=== PATIENT | male | born 1940 | race Caucasian/White ===

== ENCOUNTER 2016-08-16 15:23 | Emergency (ER) | payer OTHER ==
[~2016-08-16] VITALS: Ht 165.1 cm; Wt 81.6 kg
[~2016-08-16 15:23] MED LIST: ASPIRIN ADULT L81 M1 PO; AZOR 5 MG-40 MG1 TAB PO; CALCIUM 500500 M2 PO; CLOPIDOGREL BIS75 MG PO; FUROSEMIDE PO; GLIPIZIDE10 M PO; LEVETIRACETAM250 MG PO; OMEPRAZOLE DR20 MG PO; ONGLYZA5 MG PO; POTASSIUM20 MEQ PO; SIMVASTATIN20 MG PO
[2016-08-16 17:07] VITALS: BP 130/73
== END 2016-08-16 17:07 | disposition home or self-care (01) ==
LOC: ED 15:23
DX: B02.9 Zoster without complications (principal); I10 Essential (primary) hypertension

== ENCOUNTER 2018-02-03 05:58 | Emergency (ER) | payer OTHER ==
[~2018-02-03] VITALS: Ht 157.5 cm; Wt 81.6 kg
[2018-02-03 06:12] VITALS: Ht 157.5 cm; Wt 81.6 kg
[2018-02-03 07:34] LABS: BASOPHIL % 0.6 % (0-2); PLATELET COUNT 162 x10^3mcL (130-400); RED CELL DISTRIBUTION WIDTH 13.1 % (11.5-14.5)
[2018-02-03 07:59] LABS: UA SPECIFIC GRAVITY 1.025 (1.005-1.035); microscopic required? YES; urine erythrocyte 3+ (NEGATIVE)
[2018-02-03 08:18] LABS: CALCIUM 8.9 mg/dL (8.5-10.1); CARBON DIOXIDE 27.4 mmol/L (21-32); CHLORIDE SERUM 103 mmol/L (98-107); CREATININE SERUM 0.8 mg/dL (0.7-1.3); GLUCOSE SERUM 256 mg/dL (74-106); POTASSIUM SERUM 4.4 mmol/L (3.5-5.1); SODIUM SERUM 137 mmol/L (136-145)
[2018-02-03 08:25] LABS: ALBUMIN 3.2 g/dL (3.4-5.0); ALKALINE PHOSPHATASE 107 U/L (46-116); ALT/SGPT 16 U/L (16-63); AST/SGOT 8 U/L (15-37); BILIRUBIN TOTAL 0.5 mg/dL (0.20-1.00); TOTAL PROTEIN, SERUM 7.4 g/dL (6.4-8.2)
[2018-02-03 09:03] VITALS: BP 149/94
== END 2018-02-03 09:03 | disposition home or self-care (01) ==
LOC: ED 05:58
PROVIDERS: Emergency Medicine
DX: N39.0 Urinary tract infection, site not specified (principal); I10 Essential (primary) hypertension; R56.9 Unspecified convulsions; E78.00 Pure hypercholesterolemia, unspecified; Z86.73 Personal history of transient ischemic attack (TIA), and cerebral infarction without residual deficits; Z85.46 Personal history of malignant neoplasm of prostate
CPT/HCPCS: 36415

== ENCOUNTER 2018-08-26 07:49 | Emergency (ER) | payer OTHER ==
[~2018-08-26] VITALS: Ht 160 cm; Wt 81.6 kg
[2018-08-26 07:53] VITALS: Ht 160 cm; Wt 81.6 kg
[2018-08-26 08:40] LABS: BASOPHIL % 0.3 % (0-2); PLATELET COUNT 190 x10^3mcL (130-400); RED CELL DISTRIBUTION WIDTH 14.2 % (11.5-14.5)
[2018-08-26 08:51] LABS: CALCIUM 8.8 mg/dL (8.5-10.1); CARBON DIOXIDE 28.2 mmol/L (21-32); CHLORIDE SERUM 101 mmol/L (98-107); CREATININE SERUM 0.9 mg/dL (0.7-1.3); GLUCOSE SERUM 215 mg/dL (74-106); POTASSIUM SERUM 4.2 mmol/L (3.5-5.1); SODIUM SERUM 136 mmol/L (136-145)
[2018-08-26 08:55] LABS: ALKALINE PHOSPHATASE 69 U/L (46-116); ALT/SGPT 14 U/L (16-63); AST/SGOT 11 U/L (15-37); BILIRUBIN TOTAL 0.3 mg/dL (0.20-1.00); LIPASE 166 IU/L (73-393); TOTAL PROTEIN, SERUM 7.7 g/dL (6.4-8.2)
[2018-08-26 08:56] LABS: ALBUMIN 3.3 g/dL (3.4-5.0)
[2018-08-26 10:43] VITALS: BP 163/93
== END 2018-08-26 10:43 | disposition home or self-care (01) ==
LOC: ED 07:49
PROVIDERS: Emergency Medicine
DX: K59.00 Constipation, unspecified (principal); C79.51 Secondary malignant neoplasm of bone; C80.1 Malignant (primary) neoplasm, unspecified; I10 Essential (primary) hypertension; E11.9 Type 2 diabetes mellitus without complications; E78.00 Pure hypercholesterolemia, unspecified; Z86.69 Personal history of other diseases of the nervous system and sense organs; Z86.73 Personal history of transient ischemic attack (TIA), and cerebral infarction without residual deficits
CPT/HCPCS: 36415

== ENCOUNTER 2019-08-28 10:20 | Emergency (ER) | payer OTHER ==
[~2019-08-28] VITALS: Ht 162.6 cm; Wt 90.7 kg
[2019-08-28 10:27] VITALS: Ht 162.6 cm; Wt 90.7 kg
[2019-08-28 11:56] LABS: microscopic required? NO
[2019-08-28 12:09] LABS: urine erythrocyte NEGATIVE (NEGATIVE)
[2019-08-28 12:13] LABS: BASOPHIL % 0.5 % (0-2); PLATELET COUNT 205 x10^3mcL (130-400)
[2019-08-28 12:23] LABS: ALBUMIN 3.5 g/dL (3.4-5.0); ALKALINE PHOSPHATASE 112 U/L (46-116); ALT/SGPT 18 U/L (16-63); AST/SGOT 11 U/L (15-37); BILIRUBIN TOTAL 0.3 mg/dL (0.20-1.00); CARBON DIOXIDE 29.4 mmol/L (21-32); CHLORIDE SERUM 101 mmol/L (98-107); CREATININE SERUM 0.8 mg/dL (0.7-1.3); GLUCOSE SERUM 341 mg/dL (74-106); LIPASE 130 IU/L (73-393); SODIUM SERUM 137 mmol/L (136-145); TOTAL PROTEIN, SERUM 7.8 g/dL (6.4-8.2)
[2019-08-28 12:31] LABS: CALCIUM 9.3 mg/dL (8.5-10.1)
[2019-08-28 14:14] VITALS: BP 135/83
== END 2019-08-28 14:14 | disposition home or self-care (01) ==
LOC: ED 10:20
PROVIDERS: Emergency Medicine
DX: R10.813 Right lower quadrant abdominal tenderness (principal); R10.32 Left lower quadrant pain; K59.00 Constipation, unspecified; E11.9 Type 2 diabetes mellitus without complications; E78.00 Pure hypercholesterolemia, unspecified; I10 Essential (primary) hypertension; Z86.73 Personal history of transient ischemic attack (TIA), and cerebral infarction without residual deficits; Z85.46 Personal history of malignant neoplasm of prostate
CPT/HCPCS: 82962; J1885; J2405

== ENCOUNTER 2019-08-29 10:06 | Emergency (ER) | payer OTHER ==
[~2019-08-29] VITALS: Ht 162.6 cm; Wt 90.7 kg
[2019-08-29 10:14] VITALS: Ht 162.6 cm; Wt 90.7 kg
[2019-08-29 11:12] VITALS: BP 135/88
== END 2019-08-29 11:12 | disposition home or self-care (01) ==
LOC: ED 10:06
DX: R10.9 Unspecified abdominal pain (principal); I10 Essential (primary) hypertension; E11.9 Type 2 diabetes mellitus without complications; E78.00 Pure hypercholesterolemia, unspecified; Z86.73 Personal history of transient ischemic attack (TIA), and cerebral infarction without residual deficits; Z85.46 Personal history of malignant neoplasm of prostate